=== PATIENT | female | born 1970 | race Caucasian/White ===

== ENCOUNTER 2017-08-03 08:18 | Emergency (ER) | payer MEDICAID ==
[~2017-08-03] VITALS: Ht 157.5 cm; Wt 76.2 kg
[~2017-08-03 08:18] MED LIST: ALPR-229; CETI10TA93; CITA-77; HYDR-2595; HYDR2.5T38; OMEP20TA; OMEP20TA30; OMEP20TA85; [UNRECOGNIZED DRUG - CODE] OR
[2017-08-03 08:47] VITALS: BP 125/90
[2017-08-03] MEDS ORDERED: HYDROcodone-ACET 10/325MG TAB PO ONE (09:30)
== END 2017-08-03 11:33 | disposition home or self-care (01) ==
LOC: ER 08:18
DX: M25.512 Pain in left shoulder (principal); R42 Dizziness and giddiness; E78.5 Hyperlipidemia, unspecified; I10 Essential (primary) hypertension; G89.29 Other chronic pain; M54.2 Cervicalgia; M54.9 Dorsalgia, unspecified; Z98.51 Tubal ligation status; Z90.49 Acquired absence of other specified parts of digestive tract; Z79.899 Other long term (current) drug therapy; Z87.891 Personal history of nicotine dependence; Z98.84 Bariatric surgery status; Y08.89XA Assault by other specified means, initial encounter; Y93.89 Activity, other specified; Y99.8 Other external cause status; Y92.89 Other specified places as the place of occurrence of the external cause
CPT/HCPCS: 70450; 72125; 73030

== ENCOUNTER 2021-01-02 01:43 | Emergency (ER) | payer MEDICAID ==
[~2021-01-02] VITALS: Ht 157.5 cm; Wt 77.1 kg
[~2021-01-02 01:43] MED LIST changes: -ALPR-229; +ALPR2TAB6
[2021-01-02] MEDS ORDERED: HYDROmorphone HCL 2 MG/ML VL IV ONE ×2 (02:00→05:15)
[2021-01-02] MEDS ORDERED: ONDANSETRON HCL 4 MG/2 ML VIAL IV ONE (02:00)
[2021-01-02 05:50] VITALS: BP 123/68
== END 2021-01-02 06:59 | disposition home or self-care (01) ==
LOC: ER 01:44
DX: S82.61XA Displaced fracture of lateral malleolus of right fibula, initial encounter for closed fracture (principal); S82.51XA Displaced fracture of medial malleolus of right tibia, initial encounter for closed fracture; F41.9 Anxiety disorder, unspecified; F32.9 Major depressive disorder, single episode, unspecified; I10 Essential (primary) hypertension; E78.5 Hyperlipidemia, unspecified; Z87.891 Personal history of nicotine dependence; Z79.899 Other long term (current) drug therapy; Z88.8 Allergy status to other drugs, medicaments and biological substances; V98.8XXA Other specified transport accidents, initial encounter; Y93.89 Activity, other specified; Y92.89 Other specified places as the place of occurrence of the external cause; Y99.8 Other external cause status
CPT/HCPCS: 29515; 73590; 73610; 73630; 96374; 96375; 96376; 99284; J1170; J2405